=== PATIENT | male | born 1965 | race Caucasian/White ===

== ENCOUNTER 2017-03-19 07:30 | Inpatient (IN) | payer OTHER ==
[~2017-03-19] VITALS: Ht 177.8 cm; Wt 104.3 kg
--- NOTE | ~2017-03-19 | PFR/MVV ---
[facility] [place] [address] PULMONARY FUNCTION MVV/REPORT Name: EFRA HU Room #: 408-P [facility].#: [id number] Admission: 03/19/17 Attend Phys: Maricel Gates DO Discharge: 03/21/17 Date of : 61 Report #: [id number] THIS REPORT FOR: //name// >> SPIROMETRY: (BTPS) Height: 72 in cm Weight: 232 lbs kg Exam Date: 03/21/17 PRE-RX POST-RX PRED BEST %PRED BEST %PRED %CHG FVC LITERS . 5.08 . 4.81 . 95 . 4.67 . 92 . -3 FEV1 LITERS . 4.11 . 2.79 . 68 . 3.45 . 84 . 23 FEV1/FVC % . 80 . 58 . 72 . 74 . 92 . 27 LUO45-55% L/Sec . 4.15 . 1.33 . 32 . 2.62 . 63 . 97 PEF L/SEC . 9.34 . 8.98 . 96 . 10.06 . 108 . 12 FEF50/FIF50 UNITLESS . <1.00 . 0.43 . . 0.73 . . 70 MVV L/Min . 156 . 117 . 75 f 1/Min . . 110 . >> LUNG VOLUMES: (BTPS) PRE-RX POST-RX PRED AVG %PRED AVG %PRED %CHG VC Liters . 5.08 . 4.88 . 96 . . . TLC Liters . 7.24 . 7.42 . 102 . . . RV Liters . 2.39 . 2.54 . 106 . . . RV/TLC % . 35 . 34 . 98 . . . FRC PL Liters . 3.65 . 3.26 . 89 . . . FRC N2 Liters . 3.65 . . . . . ERV Liters . . 0.72 . . . . IC Liters . . 3.74 . . . . >> DIFFUSION: DLCO ml/Min/mmHg . 29.4 . 25.0 . 85 . . . DL Preeti ml/Min/mmHg . 29.4 . 25.0 . 85 . . . DLCO/VA ml/Min/mmHg . 4.05 . 5.20 . 128 . . . VA Liters . . 4.80 . . . . COMMENTS: COMMENTS: >> RESISTANCE: [facility] [address] [place] [address] PULMONARY FUNCTION MVV/REPORT Name: MAYTEEFRA Papo Room #: 408-P [facility] IN ..#: [id number] Admission: 03/19/17 Attend Phys: Maricel Gates DO Discharge: 03/21/17 Date of : 61 Report #: [id number] PRE-RX PRED AVG %PRED Raw Total cmH20/L/Sec . . 4.55 . Raw Insp cmH20/L/Sec . . 4.54 . Raw Exp cmH20/L/Sec . . 3.98 . Raw cmH20/L/Sec . 1.22 . 2.28 . 187 Gaw L/Sec/cmH20 . .0877 . 0.438 . 50 sRaw cmH20 Sec . 4.46 . 8.68 . 194 sGaw l/cmH20 Sec . 0.224 . 0.115 . 51 Vtq Liters . . 3.80 . # = OUTSIDE 95% CONFIDENCE INTERVAL CALIBRATION: PRED: 3.00 ACTUAL: EXP 3.01 INSP 3.02 [facility]-OL10-06 [facility]-05 N-1804-4 >> INTERPRETATION/IMPRESSION: CC: [facility] DO PULMONARY FUNCTION TEST Spirometric examination revealed mild obstructive ventilatory defect. Following bronchodilators, there was significant improvement. Lung volumes are normal. Diffusion capacity is normal. Flow volume loop is normal. IMPRESSION: Mild obstructive ventilatory defect with reversible airways. Clinical correlation is recommended. <ELECTRONICALLY SIGNED> By: Jay Mason MD 05/08/17 1449 Jay Mason MD /nt
[~2017-03-19 07:30] MED LIST: ACID CONTROL20 MG PO; CARDURA2 MG PO; GLUCOPHAGE500 MG PO; HYDROCHLOROTHIA25 M1 PO; HYDROCODON-ACE1 EAC7 PO; LISINOPRIL40 MG PO; LOPID600 MG PO; MESTINON180 MG PO; MESTINON60 MG PO; MULTI VITAMIN1 EACH PO; PREDNISONE 20 M20 MG PO; PROAIR HFA8.5 GM INH; TOPROL XL100 MG PO
[2017-03-19] MEDS ORDERED: COLACE1 EAC1 PO (08:51)
[2017-03-19] MEDS ORDERED: DOCUSATE SODIU100 MG PO (08:52)
[2017-03-19] MEDS ORDERED: LORATIDINE 10 M10 M1 PO (08:53)
[2017-03-19 09:16] VITALS: BP 146/79
[2017-03-19 09:23] LABS: HEMATOCRIT 40.7 % (42.0-52.0); HEMOGLOBIN 14.3 gm/dL (14.0-18.0); MCH 31.5 pg (26.0-34.0); MCHC 35.1 g/dL (28.0-37.0); MCV 89.7 fL (80.0-100.0); RBC 4.54 mil/uL (4.50-6.00); RDW 12.4 % (10.5-14.5); WBC 9.1 thou/uL (4.0-11.0)
[2017-03-19 09:36] LABS: APTT 24.7 Seconds (24.5-32.8); FIBRINOGEN 260.9 mg/dL (210-360); PROTIME 10.2 Seconds (9.3-11.4)
[2017-03-19 09:41] LABS: CALCIUM 9.2 mg/dL (8.5-10.1); CREATININE 0.9 mg/dL (0.7-1.3)
[2017-03-19 09:46] LABS: ALBUMIN 4.3 g/dL (3.4-5.0); TOTAL BILIRUBIN 0.5 mg/dL (<0.1-1.0); TOTAL PROTEIN 7.4 g/dL (6.4-8.2)
[2017-03-19 10:55] VITALS: BP 140/78
[2017-03-19 16:36] VITALS: BP 145/96
[2017-03-19 20:00] VITALS: BP 127/76
[2017-03-20] VITALS: BP 123/79
[2017-03-20 03:45] VITALS: BP 128/80
[2017-03-20 05:47] LABS: ABSOLUTE NEUTROPHILS 6.3 thou/uL (1.4-8.2); EOSINOPHILS 5.9 % (0.0-3.0); HEMATOCRIT 41.4 % (42.0-52.0); HEMOGLOBIN 13.9 gm/dL (14.0-18.0); LYMPHOCYTES 20.9 % (24.0-44.0); MCH 30.7 pg (26.0-34.0); MCHC 33.5 g/dL (28.0-37.0); MCV 91.5 fL (80.0-100.0); MONOCYTES 10.8 % (1.0-8.0); PLATELET COUNT 273 thou/uL (150-400); POLYS 61.4 % (36.0-66.0); RBC 4.52 mil/uL (4.50-6.00); RDW 12.6 % (10.5-14.5); WBC 10.2 thou/uL (4.0-11.0)
[2017-03-20 06:02] LABS: ALBUMIN 4.2 g/dL (3.4-5.0); CALCIUM 8.2 mg/dL (8.5-10.1); CREATININE 0.8 mg/dL (0.7-1.3); POTASSIUM 4.2 mmol/L (3.5-5.1); TOTAL BILIRUBIN 0.5 mg/dL (<0.1-1.0); TOTAL PROTEIN 5.7 g/dL (6.4-8.2)
[2017-03-20 08:53] VITALS: BP 129/83
[2017-03-20 14:30] VITALS: BP 125/79; BP 138/81
[2017-03-20 20:00] VITALS: BP 139/87
[2017-03-21] VITALS (7 sets, daily range): BP systolic 125–154; BP diastolic 54–95
[2017-03-21 10:00] LABS: HEMATOCRIT 43.2 % (42.0-52.0); HEMOGLOBIN 14.8 gm/dL (14.0-18.0); MCH 31.1 pg (26.0-34.0); MCHC 34.1 g/dL (28.0-37.0); RBC 4.75 mil/uL (4.50-6.00); RDW 12.4 % (10.5-14.5); WBC 11.8 thou/uL (4.0-11.0)
[2017-03-21 10:01] LABS: URINE BILIRUBIN NEGATIVE (Negative); URINE BLOOD NEGATIVE (Negative); URINE CLARITY CLEAR; URINE COLOR YELLOW; URINE GLUCOSE-RANDOM* NEGATIVE (Negative); URINE KETONES TRACE (Negative); URINE LEUKOCYTES NEGATIVE (Negative); URINE NITRITE NEGATIVE (Negative); URINE PROTEIN (DIPSTICK) NEGATIVE (Negative); URINE UROBILINOGEN 0.2 E.U./dl (0.2-1.0)
[2017-03-21] MEDS ORDERED: VENTOLIN HFA 1818 GM INH (16:37)
== END 2017-03-21 17:00 | disposition home or self-care (01) | DRG 74 ==
LOC: SPEC 07:30 → 4N 10:53 → SPEC 13:36 → 4N 03-21 17:00 → ENTRNSPT 03-21 17:40
PROVIDERS: Nurse Practitioner; Pathology Anatomic Pathology & Clinical Pathology; Psychiatry & Neurology Neurology
PROC: 02HV33Z Insertion of Infusion Device into Superior Vena Cava, Percutaneous Approach (ICD-10-PCS; principal; 2017-03-19)
PROC: B5181ZA Fluoroscopy of Superior Vena Cava using Low Osmolar Contrast, Guidance (ICD-10-PCS; 2017-03-19)
PROC: B548ZZA Ultrasonography of Superior Vena Cava, Guidance (ICD-10-PCS; 2017-03-19)
PROC: 30233L1 Transfusion of Nonautologous Fresh Plasma into Peripheral Vein, Percutaneous Approach (ICD-10-PCS; 2017-03-20)
PROC: 30233K1 Transfusion of Nonautologous Frozen Plasma into Peripheral Vein, Percutaneous Approach (ICD-10-PCS; 2017-03-20)
DX: G70.9 Myoneural disorder, unspecified (principal); I10 Essential (primary) hypertension; E09.9 Drug or chemical induced diabetes mellitus without complications; T38.0X5A Adverse effect of glucocorticoids and synthetic analogues, initial encounter; Y92.89 Other specified places as the place of occurrence of the external cause; Z87.442 Personal history of urinary calculi
CPT/HCPCS: 10790